=== PATIENT | female | born 1990 | race Caucasian/White ===

== ENCOUNTER 2022-08-13 03:28 | Emergency (ER) | payer MEDICAID ==
[~2022-08-13] VITALS: Ht 154.9 cm; Wt 54.4 kg
--- NOTE | 2022-08-13 03:28 | NUR ---
Patient to ER bed prabhakar to gown for evaluation. Side rails up.
--- NOTE | 2022-08-13 03:29 | NUR ---
ER at bedside examining patient.
[2022-08-13 03:30] VITALS: BP_SYST 140
[2022-08-13 03:39] VITALS: BP_SYST 140
--- NOTE | 2022-08-13 03:41 | NUR ---
Patient given written and verbal discharge instructions and verbalizes understanding. ER MD discussed with patient the results and treatment provided. Patient in stable condition. ID arm band removed. NO Rx of given. Patient educated on pain management and to follow up with PMD. Pain Scale 0/10. Opportunity for questions provided and answered. Medication side effect fact sheet provided.
== END 2022-08-13 03:39 ==
LOC: SED 03:28
DX: S60.512A Abrasion of left hand, initial encounter (principal); F15.10 Other stimulant abuse, uncomplicated; Z79.899 Other long term (current) drug therapy; X58.XXXA Exposure to other specified factors, initial encounter; Y93.89 Activity, other specified; Y92.89 Other specified places as the place of occurrence of the external cause; Y99.8 Other external cause status
CPT/HCPCS: 99283